=== PATIENT | male | born 1970 | race Caucasian/White ===

== ENCOUNTER 2019-12-02 05:42 | Emergency (ER) | payer OTHER, SELFPAY ==
--- NOTE | ~2019-12-02 | CT_ITS ---
EXAMINATION: CT abdomen pelvis w con INDICATION: Epigastric and right upper quadrant abdominal pain TECHNIQUE: Computed tomographic images of the abdomen and pelvis were obtained after the administrati on of 100 cc of Omnipaque 350 intravenous contrast. The dose-length product (DLP) was 1006.76 mGy-cm. Automated exposure control and iterative reconstruction technique were employed. COMPARISON: 11/16/2016 FINDINGS: The heart size is normal. There is a 3 mm nodule in the left lower lobe. A small sliding hi atal hernia is present. The liver, spleen, pancreas, and adrenal glands are normal. Stones are presen t in the gallbladder, some are which are near the gallbladder neck. Cysts of the kidneys measure up t o 1.8 cm on the right. There is a focal area of cortical low-attenuation in the right kidney lower po le. No pathologically enlarged abdominal or pelvic lymph nodes are identified. There is no free intra peritoneal gas or evidence of bowel obstruction. The appendix is normal. IMPRESSION: 1. Cholelithiasis with stones in the gallbladder neck but no definite evidence of cholecystitis. 2. Focal area of cortical low attenuation in the right kidney lower pole. Finding is nonspecific but could reflect pyelonephritis. Reviewed, dictated and finalized at location A. IMPRESSION: 1. Cholelithiasis with stones in the gallbladder neck but no definite evidence of cholecystitis. 2. Focal area of cortical low attenuation in the right kidney lower pole. Findi ng is nonspecific but could reflect pyelonephritis.
[2019-12-02 05:46] VITALS: BP 170/80; PULSE 51; RESP 20; TEMP 36.3; O2SAT 100
--- NOTE | 2019-12-02 06:00 | ED.ABDPAIN ---
HPI - Abdominal Pain General Chief Complaint: Abdominal Pain <Charbel Jaramillo MD - Last Filed: 12/03/19 14:38> Stated Complaint: abd pain <Charbel Jaramillo MD - Last Filed: 12/03/19 14:38> Time Seen by Provider: 12/02/19 05:54 <Charbel Jaramillo MD - Last Filed: 12/03/19 14:38> History of Present Illness HPI narrative: Epigastric abdominal pain since about 2 AM. feels like intense squeezing pain. Notes eating at [employer] and drinking a soda before onset. He has a h/o ulcer and says that this feels similar. <Charbel Jaramillo MD - Last Filed: 12/03/19 14:38> Related Data Home Medications: Home Medications Medication Instructions Recorded Confirmed losartan-hydrochlorothiazide 1 tablet PO DAILY 12/02/19 12/02/19 <Charbel Jaramillo MD - Last Filed: 12/03/19 14:38> Allergies/Adverse Reactions: Allergies Allergy/AdvReac Type Severity Reaction Status Date / Time No Known Allergies Allergy Verified 12/02/19 05:48 <Charbel Jaramillo MD - Last Filed: 12/03/19 14:38> Review of Systems Constitutional: Constitutional: Denies fever(s) <Charbel Jaramillo MD - Last Filed: 12/03/19 14:38> ENT: Denies sore throat <Charbel Jaraimllo MD - Last Filed: 12/03/19 14:38> Cardiovascular: Cardiovascular: Denies chest pain <Charbel Jaramillo MD - Last Filed: 12/03/19 14:38> Respiratory: Respiratory: Denies dyspnea <Charbel Jaramillo MD - Last Filed: 12/03/19 14:38> Gastrointestinal: Gastrointestinal: Reports abdominal pain and Denies diarrhea <Charbel Jaramillo MD - Last Filed: 12/03/19 14:38> Neurologic: Denies dizziness and Denies weakness <Charbel Jaramillo MD - Last Filed: 12/03/19 14:38> PMFSH Past Medical History Medical History: Medical History (Updated 12/03/19 @ 00:00 by Background Daemon) PUD (peptic ulcer disease) <Charbel Jaramillo MD - Last Filed: 12/03/19 14:38> Exam Const: General: healthy appearing, no acute distress and alert <Charbel Jaramillo MD - Last Filed: 12/03/19 14:38> Orientation/consciousness: patient oriented x3 <Charbel Jaramillo MD - Last Filed: 12/03/19 14:38> HENMT: Head: normal to inspection <Charbel Jaramillo MD - Last Filed: 12/03/19 14:38> Neck: Neck: normal visual inspection and no lymphadenopathy <Charbel Jaramillo MD - Last Filed: 12/03/19 14:38> Chest: Chest palpation & inspection: no tenderness <Charbel Jaramillo MD - Last Filed: 12/03/19 14:38> Resp: Effort & Inspection: normal respiratory effort <Charbel Jaramillo MD - Last Filed: 12/03/19 14:38> Auscultation: clear to auscultation bilaterally, no rales, no rhonchi and no wheezes <Charbel Jaramillo MD - Last Filed: 12/03/19 14:38> Cardio: Jugular venous distension: no JVD <Charbel Jaramillo MD - Last Filed: 12/03/19 14:38> Rate: regular rate <Charbel Jaramillo MD - Last Filed: 12/03/19 14:38> Rhythm: regular rhythm <Charbel Jaramillo MD - Last Filed: 12/03/19 14:38> Heart sounds: no murmurs <Charbel Jaramillo MD - Last Filed: 12/03/19 14:38> GI: Inspection: non-distended <Charbel Jaramillo MD - Last Filed: 12/03/19 14:38> GI Palp: Yes Soft to palpation, Yes Tenderness to palpation present (GI), No Guarding due to palpation present (GI) and No Rebound tenderness present <Charbel Jaramillo MD - Last Filed: 12/03/19 14:38> Skin: General skin exam: normal color <Charbel Jaramillo MD - Last Filed: 12/03/19 14:38> Neuro: General: patient oriented x3 and moves all extremities <Charbel Jaramillo MD - Last Filed: 12/03/19 14:38> Speech: normal speech <Charbel Jaramillo MD - Last Filed: 12/03/19 14:38> Extrem: General: no edema <Charbel Jaramillo MD - Last Filed: 12/03/19 14:38> Psych: Appearance: well kempt <Charbel Jaramillo MD - Last Filed: 12/03/19 14:38> Affect: normal affect <Charbel Jaramillo MD - Last Filed: 12/03/19 14:38> Course Reevaluation(s) Reevaluation #1: I to
[2019-12-02 07:08] LABS: Basophils Percent Auto 0.4 % (0.2-1.2); Eosinophils Absolute Auto 0.1 K/mm3 (0-0.3); Eosinophils Percent Auto 0.5 % (0-4.4); Hematocrit 44.5 % (42.0-52.0); Immature Granulocyte Absolute 0.02 K/mm3 (0.00-0.031); Immature Granulocyte Percent A 0.2 % (0-0.5); Lymphocytes Absolute Auto 1.38 K/mm3 (0.9-3.2); Lymphocytes Percent Auto 12.1 % (18.3-44.2); Mean Corpuscular HGB Conc 33.7 g/dl (32-36); Mean Corpuscular Hemoglobin 30.1 pg (26-34); Mean Corpuscular Volume 89.2 fl (80-100); Mean Platelet Volume 10.3 fl (7.4-10.4); Monocytes Absolute Auto 0.4 K/mm3 (0.1-0.6); Monocytes Percent Auto 3.1 % (2.6-8.5); Neutrophils Absolute Auto 9.6 K/mm3 (1.3-6.7); Neutrophils Percent Auto 83.7 % (45.5-73.1); Platelet Count Result 263 k/mm3 (150-375); Red Blood Count 4.99 M/mm3 (4.6-6.20); Red Cell Distribution Width 12.2 % (11.5-14.5); White Blood Count 11.4 K/mm3 (4.5-10.0)
[2019-12-02] MEDS: PANTOPRAZOLE SODIUM IV 40 MG VIAL IV PUSH (07:17)
[2019-12-02 07:19] VITALS: BP 155/77; PULSE 52; RESP 18; O2SAT 98
[2019-12-02 07:20] LABS: Alanine Aminotransferase 31 U/L (4-50); Albumin Level 4.9 g/dL (3.5-5.1); Alkaline Phosphatase 70 U/L (38-126); Aspartate Amino Transferase 25 U/L (17-59); Bilirubin,Total 0.5 mg/dL (0.2-1.3); Blood Urea Nitrogen 23 mg/dL (9-20); Calcium 9.8 mg/dL (8.4-10.2); Carbon Dioxide 30 mmol/L (22-30); Chloride 99 mmol/L (98-107); Estimated Glomerular Filt Rate > 60; Glucose 143 mg/dL (75-110); Lipase 44 U/L (23-300); Potassium 3.5 mmol/L (3.4-5.0); Sodium 139 mmol/L (137-145)
[2019-12-02 07:34] LABS: Add Urine Microscopic? YES; Appearance Urine Clear (Clear); Bilirubin Urine Negative (Negative); Blood Urine Negative (Negative); Calcium Oxalate Crystals Urine Present /hpf; Color Urine Yellow (Yellow); Glucose Urine UA Negative (Negative); Ketones Urine 1+ mg/dL (Negative); Leukocyte Esterase Ur Negative LEU/UL (Negative); Mucus Urine Few /lpf; Nitrate Urine Negative (Negative); Protein Urine 2+ mg/dL (Negative); Specific Grav Ur 1.029 (1.001-1.035); Squamous Epithelial Cell Urine Rare /hpf (Few); Urobilinogen Urine Negative mg/dL (<2.0); WBC Urine 0-3 /hpf
[2019-12-02] MEDS: DICYCLOMINE HCL INJ 20 MG/2 ML VIAL IM (08:16)
[2019-12-02] MEDS: ONDANSETRON INJ 4 MG/2 ML VIAL IV PUSH (08:16)
[2019-12-02] MEDS: LACTATED RINGERS 1,000 ML 999 ML IV CONT (08:16)
[2019-12-02] MEDS: KETOROLAC 15 MG/ML VIAL (*BKC) IV PUSH (08:16)
[2019-12-02 09:43] VITALS: BP 138/87; PULSE 72; RESP 18; O2SAT 98
== END 2019-12-02 09:45 | disposition home or self-care (01) ==
PROVIDERS: Emergency Medicine; Emergency Provider General Practice; PCP Internal Medicine
DX: K80.20 Calculus of gallbladder without cholecystitis without obstruction (principal); Z87.11 Personal history of peptic ulcer disease
CPT/HCPCS: 36415; 74177; 80053; 81001; 83690; 85025; 96372; 96374; 96375; 99284; A9270; C9113; J0500; J1885; J2405; J7120; Q9967